=== PATIENT | female | born 1985 | race Caucasian/White ===

== ENCOUNTER 2022-08-26 13:12 | Outpatient (CLI) | payer OTHER | END 2022-08-26 13:13 | disposition home or self-care (01) | LOC: BICMAMMO 13:12 | PROVIDERS: ATTEND Physician Assistant | DX: N63.10 Unspecified lump in the right breast, unspecified quadrant (principal) | CPT/HCPCS: 77066; G0279 ==

== ENCOUNTER 2024-05-04 08:29 | Outpatient (CLI) | payer OTHER | END 2024-05-04 08:30 | disposition home or self-care (01) | LOC: BICMRI 08:29 | PROVIDERS: ATTEND Orthopaedic Surgery | DX: M23.91 Unspecified internal derangement of right knee (principal); M25.561 Pain in right knee; M94.8X6 Other specified disorders of cartilage, lower leg ==

== ENCOUNTER 2024-06-07 13:02 | Outpatient (CLI) | payer OTHER ==
[2024-06-07 13:47] LABS: #Basophils 0.06 10x3/uL (0.0-0.2); %Basophils 0.7 % (0.0-1.0); %Eosinophils 1.6 % (0.0-10.0); %Lymphocytes 26.9 % (21.0-51.0); %Monocytes 7.1 % (0.0-10.0); %Neutrophils 63.3 % (42.0-75.0); Hematocrit 37.7 % (36.0-47.0); Hemoglobin 12.6 g/dL (12.0-16.0); Mean Corpuscular HGB CONC 33.4 g/dL (32.0-36.0); Mean Corpuscular Hemoglobin 29.1 pg (27.0-31.0); Mean Corpuscular Volume 87.1 fL (78.0-98.0); Mean Platelet Volume 10.1 fL (7.4-10.4); Platelet Count 345 10x3/uL (130-400); RBC Distribution Width 12.6 % (11.5-14.5); Red Blood Cell (RBC) Count 4.33 mill/uL (4.20-5.40)
[2024-06-07 13:52] LABS: BHCG - Serum Negative (NEGATIVE); Pregs Control Background? CLEAR/WHITE (CLR/WHITE); Pregs Control Bar Appear? YES (CONTROL BAR)
[2024-06-07 13:58] LABS: Anion Gap 12 mmol/L (10-20); BUN (Urea Nitrogen) 17 mg/dL (7.0-18.7); Calc. Creatinine Clearance 0 mL/min (70-130); Calcium 9.4 mg/dL (7.8-10.44); Carbon Dioxide 24 mmol/L (22-29); Chloride 105 mmol/L (98-107); Estimated GFR 84; Glucose 92 mg/dL (70-105); Potassium 3.7 mmol/L (3.5-5.1); Sodium 137 mmol/L (136-145)
== END 2024-06-07 13:03 | disposition home or self-care (01) ==
LOC: LABBT 13:02
PROVIDERS: ATTEND Orthopaedic Surgery
DX: Z01.818 Encounter for other preprocedural examination (principal); M23.91 Unspecified internal derangement of right knee
CPT/HCPCS: 80048; 84703; 85025; 93005; 93010

== ENCOUNTER 2024-06-09 06:46 | Day surgery (SDC) | payer OTHER ==
[2024-06-07 13:24] VITALS: BMI 35.8
[2024-06-09] MEDS ORDERED: Bupivacaine PF 0.5% 30 ML VIAL ONE (09:15)
[2024-06-09] MEDS ORDERED: PROPOFOL 20 ML ONE (09:15)
[2024-06-09] MEDS ORDERED: fentaNYL 50 mcg/mL 1 mL Vial ONE ×3 (09:15→12:19)
[2024-06-09] MEDS ORDERED: PROPOFOL 40 ML ONE (09:23)
[2024-06-09] MEDS ORDERED: fentaNYL PF 100 MCG/2 ML SYRINGE ONE (09:23)
[2024-06-09] MEDS ORDERED: Bupivacaine HCl 0.5%/Epinephrine 1:200,000/PF 30 ml Vial ONE (09:30)
[2024-06-09] MEDS ORDERED: Lidocaine 2% PF 5 ML VIAL ONE (09:30)
[2024-06-09] MEDS ORDERED: Sodium Chloride 0.9% 100 ML ONE (09:57)
[2024-06-09] MEDS ORDERED: CEFAZOLIN 2 GM VIAL ONE (09:57)
[2024-06-09] MEDS ORDERED: Vancomycin 1 GM/200 ML (FROZEN) BAG ONE (10:02)
[2024-06-09] MEDS ORDERED: Vancomycin (BATCH) 1.5 GM/300 ML BAG ONE (10:03)
[2024-06-09] MEDS ORDERED: Ondansetron PF 4 MG/2 ML Vial ONE (10:26)
[2024-06-09] MEDS ORDERED: Dexamethasone 20 MG/5 ML VIAL ONE (10:26)
[2024-06-09] MEDS ORDERED: Glycopyrrolate 0.2 MG/ML 5 ML SYRINGE ONE (10:30)
[2024-06-09] MEDS ORDERED: Dexmedetomidine 200 MCG/2 ML VIAL ONE (10:42)
[2024-06-09] MEDS ORDERED: Ketorolac Tromethamine 30 MG (1 mL) VIAL ONE (11:35)
[2024-06-09] MEDS ORDERED: Metoclopramide HCl 10 MG (2 mL) VIAL ONE (11:36)
[2024-06-09] MEDS ORDERED: Promethazine HCl 25 MG/ML VIAL IM PRN ×2 (12:11→12:45)
[2024-06-09] MEDS ORDERED: Meperidine HCl/PF 25 MG/ML VIAL SLOW IVP PRN (12:11)
[2024-06-09] MEDS ORDERED: Ondansetron HCl/PF 4 MG/2 ML Vial IVP PRN (12:11)
[2024-06-09] MEDS ORDERED: fentaNYL 50 mcg/mL 1 mL Vial SLOW IVP PRN (12:38)
[2024-06-09] MEDS ORDERED: HYDROcodone/Acetaminophen 5/325 mg Tablet PO PRN ×2 (12:45)
[2024-06-09] MEDS ORDERED: Ropivacaine 0.2% 550 ML 550 ML NERVE BLCK SCH (12:45)
[2024-06-09] MEDS ORDERED: Ondansetron PF 4 MG/2 ML Vial IVP PRN (12:45)
[2024-06-09] MEDS ORDERED: Zolpidem Tartrate 5 MG TAB PO PRN (12:45)
[2024-06-09] MEDS ORDERED: HYDROcodone/Acetaminophen 5/325 mg Tablet ONE (13:14)
[2024-06-09] MEDS ORDERED: Ketorolac Tromethamine 30 MG (1 mL) VIAL IVP SCH (18:00)
== END 2024-06-09 14:40 | disposition home or self-care (01) ==
LOC: SDC 06:46
PROVIDERS: ATTEND Orthopaedic Surgery
PROC: 3E0T3BZ Introduction of Anesthetic Agent into Peripheral Nerves and Plexi, Percutaneous Approach (ICD-10-PCS; principal; 2024-06-09)
PROC: 0SBC4ZZ Excision of Right Knee Joint, Percutaneous Endoscopic Approach (ICD-10-PCS; principal; 2024-06-09)
DX: M23.91 Unspecified internal derangement of right knee (principal); M94.9 Disorder of cartilage, unspecified; F41.9 Anxiety disorder, unspecified; E78.00 Pure hypercholesterolemia, unspecified; I10 Essential (primary) hypertension; Z98.890 Other specified postprocedural states; Z79.899 Other long term (current) drug therapy
CPT/HCPCS: A4306; C9250; J0665; J1100; J1885; J2001; J2405; J2704; J2765; J2795; J3010; J3370; J3370-JW